=== PATIENT | female | born 1980 | race Caucasian/White ===

== ENCOUNTER → 2016-09-09 | Outpatient (REF) ==
--- NOTE | 2016-09-10 03:08 | REP ---
Clinical: Pain and disability . Technique: AP, lateral, and coned-down views. Findings: Alignment and lordosis is maintained. The vertebral bodies including transverse process and spinous processes are intact and normal. There is no evidence for acute fracture / compression injury or subluxation. No evidence for spondylolysis or spondylolisthesis. No significant degenerative change is noted. Impression: Normal, age-appropriate lumbosacral spine radiograph series. Signed by Shabbir Hernandez MD 09/10/2016 02:59 A
== END ==
LOC: M SMT 14:24
PROVIDERS: ATTEND Internal Medicine
DX: Z02.71 Encounter for disability determination (principal)

== ENCOUNTER 2022-03-25 08:21 | Observation (INO) | payer SELFPAY ==
[~2022-03-25] VITALS: Ht 154.9 cm; Wt 86.7 kg
[~2022-03-25 08:21] MED LIST: BIOT1CAP2 PO; D-50CAP PO; FERR325T19 PO; HEPARIN SOD (PORCINE) 5000UNITS/ML 1ML VIAL/SYRINGE SQ ONE; LISI5TAB11 PO; VITMTA PO; ceFAZolin SOD 2 GM in IV 1 EA IV ONE
[2022-03-25] MEDS ORDERED: ROCURONIUM BROMIDE 50 MG/5 ML VIAL As Ordered ONE ×2 (08:27→14:19)
[2022-03-25] MEDS ORDERED: LIDOCAINE 2% 100MG/5ML SDV (FOR ANES.) As Ordered ONE (08:27)
[2022-03-25] MEDS ORDERED: ONDANSETRON 4MG 2ML VIAL As Ordered ONE (08:27)
[2022-03-25] MEDS ORDERED: propofoL 200 MG/20 ML VIAL As Ordered ONE (08:27)
[2022-03-25] MEDS ORDERED: dexameTHASONE 4 MG/ML 1ML VIAL (J1100 PER 1MG) As Ordered ONE (08:27)
[2022-03-25] MEDS ORDERED: fentaNYL 250 MCG/5 ML INJECTION As Ordered ONE (08:28)
[2022-03-25] MEDS ORDERED: MIDAZOLAM INJ 2MG/2ML VIAL (J2250 PER 1MG) As Ordered ONE (08:28)
[2022-03-25] MEDS ORDERED: LR 1,000 ML IV SCH ×2 (08:50→17:10)
[2022-03-25] MEDS ORDERED: BUPIVACAINE HCL 0.25% 10ML VIAL As Ordered ONE (13:05)
[2022-03-25] MEDS ORDERED: GENTAMICIN SULF 80MG/2ML VIAL As Ordered ONE (13:05)
[2022-03-25] MEDS ORDERED: BUPIVACAINE LIPOSOME/PF 1.3% 20ML VIAL (13.3MG/ML)(EXPAREL) As Ordered ONE (13:05)
[2022-03-25] MEDS ORDERED: EPINEPHrine INJ 1 MG/ML 1ML AMP As Ordered ONE (13:58)
[2022-03-25] MEDS ORDERED: LIDOCAINE 1% MDV 20ML VIAL As Ordered ONE (13:58)
[2022-03-25] MEDS ORDERED: ACETAMINOPHEN 1000MG 100ML IV BTL (OFIRMEV) (J0131 PER 10MG) As Ordered ONE (14:18)
[2022-03-25] MEDS ORDERED: diphenhydrAMINE 50MG/ML VIAL (J1200) As Ordered ONE (14:18)
[2022-03-25] MEDS ORDERED: SUGAMMADEX SODIUM 500 MG/5 ML VIAL (BRIDION) As Ordered ONE (14:18)
[2022-03-25] MEDS ORDERED: METOCLOPRAMIDE INJ 10MG/2ML VIAL (J2765 PER 1) As Ordered ONE (14:18)
[2022-03-25] MEDS ORDERED: HYDROmorphone HCL 2MG/ML 1ML VIAL As Ordered ONE (15:41)
[2022-03-25] MEDS ORDERED: fentaNYL 100 MCG/2 ML INJECTION IV PRN (17:10)
[2022-03-25] MEDS ORDERED: ONDANSETRON 4MG 2ML VIAL IV PRN ×2 (17:10→17:45)
[2022-03-25] MEDS ORDERED: oxyCODONE 5MG TAB PO PRN (17:10)
[2022-03-25] MEDS ORDERED: MEPERIDINE INJ 25 MG/ML VIAL (J2175) IV PRN (17:10)
[2022-03-25] MEDS ORDERED: PERCOCET 5MG/325MG TAB PO PRN (17:45)
[2022-03-25 18:45] VITALS: BP 133/78
[2022-03-25] MEDS: ACETAMINOPHEN TAB 650MG DOSE (2X325MG) PO PRN (18:52)
[2022-03-25] MEDS: LR 1,000 ML IV SCH (19:05)
[2022-03-25 19:15] VITALS: BP 135/85
[2022-03-25 20:15] VITALS: BP 138/83
[2022-03-25 21:15] VITALS: BP 133/82
[2022-03-25] MEDS: ceFAZolin SOD 1 GM in D5W MINI-BAG PLUS 50 ML IV SCH (21:48)
[2022-03-25 22:15] VITALS: BP 126/77
[2022-03-25 23:15] VITALS: BP 130/80
[2022-03-26] MEDS: ACETAMINOPHEN TAB 650MG DOSE (2X325MG) PO PRN
[2022-03-26 02:00] VITALS: BP 132/81
[2022-03-26] MEDS: traMADol 50 MG TAB PO PRN ×2 (05:51→12:23)
[2022-03-26] MEDS: ceFAZolin SOD 1 GM in D5W MINI-BAG PLUS 50 ML IV SCH (05:51)
[2022-03-26 06:00] VITALS: BP 135/82
[2022-03-26] MEDS: LR 1,000 ML IV SCH (08:20)
[2022-03-26] MEDS ORDERED: lisinopriL 5 MG TAB PO SCH (09:00)
[2022-03-26] MEDS ORDERED: FERROUS SULFATE 325MG TAB PO SCH (09:00)
[2022-03-26 09:28] VITALS: BP 138/84
[2022-03-26 10:00] VITALS: BP 137/85
[2022-03-26] MEDS ORDERED: TRAM50TA2 PO (10:42)
== END 2022-03-26 12:20 | disposition home or self-care (01) ==
LOC: M SDC 08:21 → M MS5PR 08:22
PROVIDERS: ADMIT Plastic Surgery Surgery of the Hand; ATTEND Plastic Surgery Surgery of the Hand
DX: N64.81 Ptosis of breast (principal); I10 Essential (primary) hypertension; Z79.899 Other long term (current) drug therapy; Z98.84 Bariatric surgery status; Z87.891 Personal history of nicotine dependence
CPT/HCPCS: 19316; 81025; 88305; 96365; 96366; C9290; J0131; J0171; J0690; J1100; J1170; J1200; J1580; J1644; J2250; J2405; J2765; J3010

== ENCOUNTER 2023-07-07 09:52 | Observation (INO) | payer OTHER ==
[2023-07-06 18:41] VITALS: BP 130/79; TEMP 98.1; O2SAT 94
[~2023-07-07] VITALS: Ht 154.9 cm; Wt 81.1 kg
[~2023-07-07 09:52] MED LIST changes: +LISI2.5T9 PO; +TRAM50TA2 PO
[2023-07-07] MEDS ORDERED: fentaNYL 250 MCG/5 ML INJECTION As Ordered ONE (10:15)
[2023-07-07] MEDS ORDERED: ROCURONIUM BROMIDE 50MG/5ML VIAL As Ordered ONE (10:15)
[2023-07-07] MEDS ORDERED: propofoL 200 MG/20 ML VIAL As Ordered ONE (10:15)
[2023-07-07] MEDS ORDERED: LIDOCAINE 2% 100MG/5ML SDV (FOR ANES.) As Ordered ONE (10:15)
[2023-07-07] MEDS ORDERED: LR 1,000 ML IV SCH (10:15)
[2023-07-07] MEDS ORDERED: MIDAZOLAM INJ 2MG/2ML VIAL As Ordered ONE (10:15)
[2023-07-07] MEDS ORDERED: GENTAMICIN SULF 80MG/2ML VIAL As Ordered ONE (12:43)
[2023-07-07] MEDS ORDERED: HYDROmorphone HCL 2MG/ML 1ML VIAL As Ordered ONE (13:55)
[2023-07-07] MEDS ORDERED: ACETAMINOPHEN 1000MG 100ML IV BAG As Ordered ONE (14:10)
[2023-07-07] MEDS ORDERED: ONDANSETRON 4MG 2ML VIAL As Ordered ONE (14:10)
[2023-07-07] MEDS ORDERED: ePHEDrine SULFATE 25 MG/5 ML(5MG/ML) SYRINGE As Ordered ONE (14:45)
[2023-07-07] MEDS ORDERED: SEVOFLURANE INHAL SOLN 250 ML BTL As Ordered ONE (15:44)
[2023-07-07] MEDS ORDERED: ONDANSETRON 4MG 2ML VIAL IV PRN ×2 (17:20→17:35)
[2023-07-07] MEDS ORDERED: MORPHINE 2 MG/ML 1ML VIAL IV PRN (17:20)
[2023-07-07] MEDS ORDERED: fentaNYL 100 MCG/2 ML INJECTION IV PRN (17:20)
[2023-07-07] MEDS ORDERED: oxyCODONE 5MG TAB PO PRN ×2 (17:20→17:35)
[2023-07-07] MEDS ORDERED: traMADol 50 MG TAB PO PRN (17:35)
[2023-07-07] MEDS: LR 1,000 ML IV SCH (18:46)
[2023-07-07 19:51] VITALS: BP 121/91; TEMP 97.2; O2SAT 94
[2023-07-07 20:51] VITALS: BP 149/124; TEMP 97; O2SAT 97
[2023-07-07] MEDS: ceFAZolin SOD 1 GM in D5W MINI-BAG PLUS 50 ML IV SCH (21:05)
[2023-07-07 21:52] VITALS: BP 119/72; TEMP 97; O2SAT 96
[2023-07-07 22:52] VITALS: BP 112/67; TEMP 97.2; O2SAT 98
[2023-07-07] MEDS ORDERED: PROMETHAZINE 25MG/ML 1ML VIAL IM ONE (23:40)
[2023-07-08 01:53] VITALS: BP 100/62; TEMP 97.5; O2SAT 98
[2023-07-08] MEDS: LR 1,000 ML IV SCH (03:39)
[2023-07-08] MEDS: ceFAZolin SOD 1 GM in D5W MINI-BAG PLUS 50 ML IV SCH ×3 (05:29→21:57)
[2023-07-08 06:36] LABS: HEMATOCRIT 28.3 % (36.0-47.0); HEMOGLOBIN 9.9 g/dl (12.0-15.5); MEAN CORPUSCULAR HEMOGLOBIN 30.5 pg (27.0-33.0); MEAN CORPUSCULAR VOLUME 87.1 fl (80.0-96.0); PLATELET COUNT, AUTOMATED 203 10^3/uL (150-450); RED BLOOD COUNT 3.25 10^6/uL (4.00-5.40); WHITE BLOOD COUNT 10.4 10^3/uL (4.0-10.0)
[2023-07-08 06:43] VITALS: BP 110/62; TEMP 97.5; O2SAT 99
[2023-07-08] MEDS: LISINOPRIL *2.5 MG* TAB PO SCH (08:45)
[2023-07-08] MEDS: ACETAMINOPHEN TAB 650MG DOSE (2X325MG) PO PRN ×3 (08:46→21:57)
[2023-07-08 09:35] VITALS: BP 112/61
[2023-07-08 14:00] VITALS: BP 107/63; TEMP 98.2; O2SAT 98
[2023-07-08 20:46] VITALS: BP 107/62; TEMP 97.5; O2SAT 98
[2023-07-09] MEDS: ACETAMINOPHEN TAB 650MG DOSE (2X325MG) PO PRN (05:49)
[2023-07-09] MEDS: ceFAZolin SOD 1 GM in D5W MINI-BAG PLUS 50 ML IV SCH (05:49)
[2023-07-09 05:58] VITALS: BP 108/62; TEMP 98.2; O2SAT 98
[2023-07-09 09:39] VITALS: BP 131/82
[2023-07-09] MEDS: LISINOPRIL *2.5 MG* TAB PO SCH (09:39)
== END 2023-07-09 10:30 | disposition home or self-care (01) ==
LOC: M SDC 09:52 → M RR INP 09:53 → M MS5PR 18:26
PROVIDERS: ADMIT Plastic Surgery Surgery of the Hand; ATTEND Plastic Surgery Surgery of the Hand
DX: M54.07 Panniculitis affecting regions of neck and back, lumbosacral region (principal); Z98.84 Bariatric surgery status; G43.909 Migraine, unspecified, not intractable, without status migrainosus; I10 Essential (primary) hypertension; F41.9 Anxiety disorder, unspecified; F32.A Depression, unspecified; Z79.899 Other long term (current) drug therapy; Z87.891 Personal history of nicotine dependence
CPT/HCPCS: 15830; 15847; 36415; 81025; 85018; 85027; 87635; 88300; 96365; 96366; 96372; 96375; C9290; J0131; J0665; J0690; J1100; J1170; J1580; J2250; J2405; J2550; J3010

== ENCOUNTER 2025-03-30 07:29 | Day surgery (SDC) | payer SELFPAY ==
[~2025-03-30] VITALS: Ht 154.9 cm; Wt 78.7 kg
[~2025-03-30 07:29] MED LIST changes: -HEPARIN SOD (PORCINE) 5000UNITS/ML 1ML VIAL/SYRINGE SQ ONE; +LEVO50TA5 PO; +THERTAB52 PO; +TOPI-14 PO; -ceFAZolin SOD 2 GM in IV 1 EA IV ONE
[2025-03-30] MEDS: LR 1,000 ML IV SCH (08:10)
[2025-03-30] MEDS ORDERED: dexAMETHasone 4 MG/ML 1 ML VIAL As Ordered ONE (08:17)
[2025-03-30] MEDS ORDERED: LIDOCAINE 2% 100 MG/5 ML SDV (FOR ANES.) As Ordered ONE (08:17)
[2025-03-30] MEDS ORDERED: dexmedeTOMIDine (4 MCG/ML) 200 MCG/50 ML BTL As Ordered ONE (08:17)
[2025-03-30] MEDS ORDERED: ONDANSETRON 4MG 2ML VIAL As Ordered ONE (08:17)
[2025-03-30] MEDS ORDERED: ROCURONIUM BROMIDE 50MG/5ML VIAL As Ordered ONE (08:17)
[2025-03-30] MEDS ORDERED: MIDAZOLAM INJ 2 MG/2 ML VIAL As Ordered ONE (08:18)
[2025-03-30] MEDS: ceFAZolin SOD 2 GM IV ONCE IV ONE (09:43)
[2025-03-30] MEDS: GENTAMICIN SULF 80 MG/2 ML VIAL As Ordered ONE (09:58)
[2025-03-30] MEDS ORDERED: HYDROmorphone HCL 2 MG/ML 1 ML VIAL As Ordered ONE (10:07)
[2025-03-30] MEDS ORDERED: SUGAMMADEX SODIUM 500 MG/5 ML VIAL As Ordered ONE (10:07)
[2025-03-30] MEDS ORDERED: ACETAMINOPHEN 1000MG/100ML IV BAG As Ordered ONE (10:07)
[2025-03-30] MEDS ORDERED: TOPA100T12 PO (10:10)
[2025-03-30] MEDS ORDERED: HOME MED LIST COMPLETE! XX SCH (10:15)
[2025-03-30] MEDS ORDERED: LR 1,000 ML IV SCH (11:40)
[2025-03-30] MEDS ORDERED: HYDROMORPHONE HCL 0.5 MG/0.5 ML SYRINGE IV PRN (11:40)
[2025-03-30] MEDS ORDERED: TRAM50TA2 PO (12:09)
[2025-03-30 13:33] VITALS: BP 160/86; TEMP 97; O2SAT 98
== END 2025-03-30 13:54 | disposition home or self-care (01) ==
LOC: M SDC 07:29
PROVIDERS: ATTEND Plastic Surgery Surgery of the Hand
DX: L98.7 Excessive and redundant skin and subcutaneous tissue (principal); Z98.84 Bariatric surgery status; I10 Essential (primary) hypertension; E03.9 Hypothyroidism, unspecified; G43.909 Migraine, unspecified, not intractable, without status migrainosus; F41.9 Anxiety disorder, unspecified; F32.A Depression, unspecified; Z79.899 Other long term (current) drug therapy; Z79.890 Hormone replacement therapy
CPT/HCPCS: 15836; 81025; 88300; J0131; J0665; J0666; J0690; J1100; J1171; J1580; J2250; J2405; J2765; J3010